=== PATIENT | male | born 1960 | race Caucasian/White ===

== ENCOUNTER 2025-01-14 14:12 | Inpatient (IN) | payer BC ==
[~2025-01-14] VITALS: Ht 162.6 cm; Wt 72.5 kg
--- NOTE | 2025-01-14 14:39 | ED.PDOC ---
History of Present Illness HPI Comments 64-year-old male came to the ER stating that he has been having right side inguinal pain for the past month. First started in the right flank started radiating into the right lower quadrant into the inguinal region. Has been seen at [facility] for which she was given fluids and sent home. Last week he was seen at [facility] for the same pain for which he was given fluids and sent home. Comes back today saying the pain is 10/10 mostly in the waiting while in region with nausea but no vomiting. He does have a history of diabetes. Denies any other symptoms. Time Seen by MD: 14:27 Reviewed Notes: Nurses Notes, Medications, Allergies Allergies: Coded Allergies: NO KNOWN ALLERGIES (Unverified , 01/14/25) Information Source: Patient Mode of Arrival: Ambulatory Severity: Moderate Timing: Days Duration: Since onset Past Medical History PAST MEDICAL HISTORY: DM Surgical History: Denies all surgeries Social History Smoker: Cigarettes Alcohol: Denies ETOH Use Drugs: Denies Drug Use Constitutional: denies: chills, diaphoresis, fatigue, fever, malaise, sweats, weakness, others EENTM: denies: blurred vision, double vision, ear bleeding, ear discharge, ear drainage, ear pain, ear ringing, eye pain, eye redness, hearing loss, mouth pain, mouth swelling, nasal discharge, nose bleeding, nose congestion, nose pain, photophobia, tearing, throat pain, throat swelling, voice changes, others Respiratory: denies: cough, hemoptysis, orthopnea, SOB at rest, shortness of breath, SOB with excertion, stridor, wheezing, others Cardiovascular: denies: chest pain, dizzy spells, diaphoresis, Dyspnea on exertion, edema, irregular heart beat, left arm pain, lightheadedness, palpitations, PND, syncope, others Gastrointestinal: reports: abdominal pain; denies: abdomen distended, blood streaked bowels, constipated, diarrhea, dysphagia, difficulty swallowing, hematemesis, melena, nausea, poor appetite, poor fluid intake, rectal bleeding, rectal pain, vomiting, others Genitourinary: denies: burning, dysuria, flank pain, frequency, hematuria, incontinence, penile discharge, penile sore, pain, testicle pain, testicle swelling, urgency, others Neurological: denies: dizziness, fainting, headache, left sided numbness, left sided weakness, numbness, paresthesia, pre-existing deficit, right sided numbness, right sided weakness, seizure, speech problems, tingling, tremors, weakness, others Musculoskeletal: denies: back pain, gout, joint pain, joint swelling, muscle pain, muscle stiffness, neck pain, others Integumetry: denies: bruises, change in color, change in hair/nails, dryness, laceration, lesions, lumps, rash, wounds, others Allergic/Immunocompromised: denies: Difficulty Healing, Frequent Infections, Hives, Itching, others Hematologic/Lymphatic: denies: anemia, blood clots, easy bleeding, easy bruising, swollen glands, others Endocrine: denies: excessive hunger, excessive sweating, excessive thirst, excessive urination, flushing, intolerance to cold, intolerance to heat, unexplained weight gain, unexplained weight loss, others Psychiatric: denies: anxiety, bipolar disorder, depression, hopeless, panic disorder, schizophrenia, sleepless, suicidal, others Physical Exam General Appearance: Moderate Distress HEENT: Normal ENT Inspection, Pharynx Normal, TMs Normal Neck: Full Range of Motion, Non-Tender, Normal, Normal Inspection Respiratory: Chest Non-Tender, Lungs Clear, No Accessory Muscle Use, No Respiratory Distress, Normal Breath Sounds Cardiovascular: No Edema, No JVD, No Murmur, No Gallop, Normal Peripheral Pulses, Regular Rate/Rhythm Breast Exam: Deferred Gastrointestinal: No Organomegaly, Non Tender, No Pulsatile Mass, Normal Bowel Sounds, Soft Genitalia: Deferred Pelvic: Deferred Rectal: Deferred Extremities: No calf tenderness, Normal capillary refill, Normal inspection, Normal range of motion, Non-tender, No pedal edema Musculoskeletal : Apperance: Normal Neurologic: Alert, combine mechanic II-XII nml as Tested, No Motor Deficits, Normal Affect, Normal Mood, No Sensory Deficits Cerebellar Function: Normal Reflexes: Normal Skin: Dry, Normal Color, Warm Peripheral Pulses: 3+ Radial (R), 3+ Radial (L) Lymphatic: No Adenopathy Was a procedure done? Was a procedure done?: No Differential Dx Considerations may include: Anemia Electrolyte imbalance X-Ray, Labs, Meds, VS Vital Signs Date Time Temp Pulse Resp B/P (MAP) Pulse Ox O2 Delivery O2 Flow Rate FiO2 01/14/25 17:48 97.8 71 16 112/71 (85) 98 97.8 01/14/25 14:54 Room Air 0 01/14/25 14:54 97.8 81 20 130/70 (90) 98 97.8 Lab Test 01/14/25 14:51 Range/Units White Blood Count 8.2 4.4-10.8 10^3/uL Red Blood Count 4.83 4.5-5.90 10^6/uL Hemoglobin 14.9 13.5-17.5 g/dL Hematocrit 42.0 41.0-53.0 % Mean Corpuscular Volume 87.1 80.0-100.0 fL Mean Corpuscular Hemoglobin 30.8 28.0-32.0 pg Mean Corpuscular Hemoglobin Concent 35.4 32.0-36.0 g/dL Red Cell Distribution Width 13.6 11.8-14.3 % Platelet Count 206 140-450 10^3/uL Mean Platelet Volume 6.6 L 6.9-10.8 fL Neutrophils (%) (Auto) 68.7 37.0-80.0 % Lymphocytes (%) (Auto) 23.2 10.0-50.0 % Monocytes (%) (Auto) 5.9 0.0-12.0 % Eosinophils (%) (Auto) 1.9 0.0-7.0 % Basophils (%) (Auto) 0.3 0.0-2.0 % Neutrophils # (Auto) 5.7 1.6-8.6 10 ^3/uL Lymphocytes # (Auto) 1.9 0.4-5.4 10 ^3/uL Monocytes # (Auto) 0.5 0-1.3 10 ^3/uL Eosinophils # (Auto) 0.2 0-0.8 10 ^3/uL Basophils # (Auto) 0 0-0.2 10 ^3/uL Nucleated Red Blood Cells 0.1 % Sodium Level 142 136-145 mmol/L Potassium Level 3.7 3.5-5.1 mmol/L Chloride Level 109 H 98-107 mmol/L Carbon Dioxide Level 27 20-31 mmol/L Anion Gap 6 5-15 Blood Urea Nitrogen 16 9-23 mg/dL Creatinine 1.08 0.700-1.30 mg/dL Glomerular Filtration Rate Calc 77 >90 mL/min BUN/Creatinine Ratio 14.8 10.0-20.0 Serum Glucose 143 H 74-106 mg/dL Calcium Level 9.6 8.7-10.4 mg/dL Patient alert. Complaining of right side inguinal pain. Vitals stable. Answering questions. Establish intravenous access. Was given fluids. Was given Toradol. Was given Zofran. History of kidney stone. Has been trying to passed a kidney stone. Continues to be in severe pain. He does smoke cigarettes. Counseled patient on effects of smoking cigarettes for 15 minutes. Reviewed his history. CT of the abdomen does reveal kidney stone with the lung cut showing pneumonia. Was given Rocephin. Was given azithromycin. Explained to the patient. Continue monitoring. Time of 1ST Reevaluation: 14:38 Reevaluation 1ST: Unchanged Patient Education/Counseling: Diagnosis, Treatment, Prognosis Family Education/Counseling: No Family Present Departure 1 Departure Time of Disposition: 14:38 Impression: Primary Impression: Pneumonia Qualified Codes: J18.9 - Pneumonia, unspecified organism Additional Impression: Kidney stone Disposition: ADMITTED INPATIENT Admit to: Med Surg Condition: Guarded Critical Care Note Critical Care Time?: No Stability Stability form required: No Heart Score Heart Score: Heart Score Response (Comments) Value History N/A 0 EKG N/A 0 Age N/A 0 Risk Factors N/A 0 Troponin N/A 0 Total 0 RIKI WILLARD MD January 14, 2025 14:39
[2025-01-14 15:26] LABS: Potassium 3.7 mmol/L (3.5-5.1); Sodium 142 mmol/L (136-145)
[2025-01-14 15:27] LABS: Anion Gap 6 (5-15); Carbon Dioxide 27 mmol/L (20-31)
[2025-01-14 15:28] LABS: Calcium 9.6 mg/dL (8.7-10.4)
[2025-01-14 15:32] LABS: BUN/Creatinine Ratio 14.8 (10.0-20.0); Blood Urea Nitrogen 16 mg/dL (9-23)
[2025-01-14 15:33] LABS: Chloride 109 mmol/L (98-107); Glucose 143 mg/dL (74-106)
[2025-01-14 15:40] LABS: Basophils # (auto) 0 10 ^3/uL (0-0.2); Basophils % (auto) 0.3 % (0.0-2.0); Eosinophils # (auto) 0.2 10 ^3/uL (0-0.8); Eosinophils % (auto) 1.9 % (0.0-7.0); Hemoglobin 14.9 g/dL (13.5-17.5); Lymphocytes # (auto) 1.9 10 ^3/uL (0.4-5.4); Lymphocytes % (auto) 23.2 % (10.0-50.0); Mean Corpuscular Hemoglobin 30.8 pg (28.0-32.0); Mean Corpuscular Hgb Conc. 35.4 g/dL (32.0-36.0); Mean Corpuscular Volume 87.1 fL (80.0-100.0); Monocytes # (auto) 0.5 10 ^3/uL (0-1.3); Monocytes % (auto) 5.9 % (0.0-12.0); Neutrophils # (auto) 5.7 10 ^3/uL (1.6-8.6); Neutrophils % (auto) 68.7 % (37.0-80.0); Nucleated Red Blood Cells % 0.1 %; Platelet Count (auto) 206 10^3/uL (140-450); Red Blood Cells 4.83 10^6/uL (4.5-5.90); Red Cell Distribution Width 13.6 % (11.8-14.3); White Blood Cell 8.2 10^3/uL (4.4-10.8)
--- NOTE | 2025-01-14 16:55 | DVH ---
Exam: CT CT AB PEL WO CON-NO ORAL OR IV History: stone Comparison Study: None TECHNIQUE: Multidetector CT of the abdomen and pelvis without IV contrast. Axial, coronal and sagitta l multiplanar reformats were obtained from the axial data set by the technologist. Radiation Dose Information: CT Dose: CTDI volume is 8.86 mGy. Dose-length product is 403.83 mGy*cm FINDINGS: Bibasilar ground-glass opacities which may represent infectious/inflammatory process. Heart size is w ithin normal limits. Subcentimeter hypodense hepatic lesion that is too small to characterize. Otherwise, liver, spleen, p ancreas and adrenal glands are unremarkable. Gallstones/tumefactive sludge within the gallbladder. N o CT evidence of acute cholecystitis. Punctate nonobstructing bilateral renal calculi. Mild nonspecific bilateral perinephric fat stranding . There is 5 x 3 x 6 mm calculus within the right distal ureter with focal dilatation of the distal u reter and mild adjacent fat stranding. No significant hydro nephrosis bilaterally. Mildly distended u rinary bladder is unremarkable. Prostate measures 3.4 x 4.6 x 3.7 cm with foci of calcification. Moderate amount of fecal material within the colon. Small bowel loops unremarkable. Appendix is unrem arkable. Descending colon and Sigmoid diverticulosis without diverticulitis. Moderate to large amoun t of fecal material within the colon. No evidence of intraperitoneal free air or free fluid. No evidence of aortic aneurysm. [id number] atherosclerotic calcification of the aorta and bila teral iliacs. No significant lymphadenopathy. Tiny fat containing umbilical hernia. Small fat containing left inguinal hernia. No destructive osseo us lesions noted. Post laminectomy changes at L3-L4 and L4-L5. IMPRESSION: There is 5 x 3 x 6 mm calculus within the right distal ureter with focal dilatation of the distal ure ter and mild adjacent fat stranding. No significant hydronephrosis bilaterally. Bibasilar ground-glass opacities which may represent infectious/inflammatory process. Gallstone/ tumefactive sludge within the gallbladder with no evidence of acute cholecystitis. Punctate nonobstructing bilateral renal calculi. Moderate amount of fecal material within the colon. Colonic diverticulosis without diverticulitis. Additional findings as above.
--- NOTE | 2025-01-14 17:17 | DVHINCON2 ---
Date of service: January 14, 2025 Referring Physician ER MD Reason for Consultation hydronephrosis History of Present Illness History Source: Patient, RN Notes, MD Notes, Old Records Exam Limitations: No limitations HPI 64 years old male with a history of diabetes mellitus, kidney stone came with a complaint of abdominal pain. As per patient patient has been having abdominal pain for last 1 month. Patient started having severe abdominal pain, sharp, 10/10 that started 1 month before. With the pain patient went to [facility] twice. Found to have renal calculi. Patient was treated with IV fluid and pain medicine and discharged home assuming stone pass on its own. Patient also went to [facility] with the same complaint last week and was treated with IV fluid and pain management. Today patient came [facility] after visiting Dr. Gallego. Patient reported he started having severe right inguinal pain, 10/10, crampy, constant, radiating to the back, no aggravating or relieving factor. Patient had some nausea but no vomiting. Patient also endorsed dysuria for several days. Dr. Gallego recommended patient to visit ER for further management and intervention. Patient denied any fever, acute constipation or diarrhea, chest pain or shortness of breath, dysarthria or acute joint pain or swelling. Abdomen and pelvis revealed- There is 5 x 3 x 6 mm calculus within the right distal ureter with focal dilatation of the distal ureter and mild adjacent fat stranding. No significant hydronephrosis bilaterally. Bibasilar ground-glass opacities which may represent infectious/inflammatory process. Gallstone/ tumefactive sludge within the gallbladder with no evidence of acute cholecystitis. Punctate nonobstructing bi lateral renal calculi. Moderate amount of fecal material within the colon. Colonic diverticulosis without diverticulitis. Review of Systems Gastrointestinal: Abdominal Pain Genitourinary: Hematuria, Pain H&P Exam Vital Signs Vital Signs Date Time Temp Pulse Resp B/P (MAP) Pulse Ox O2 Delivery O2 Flow Rate FiO2 01/14/25 14:54 Room Air 0 01/14/25 14:54 97.8 81 20 130/70 (90) 98 97.8 General Appeara: Well developed, Well nourished, Normal Appearance Neuro/Mental St: Alert, Oriented Appearance: Appropriate appearance, Appropriate insight Eye contact/ Speech: Cooperative, Good eye contact, Normal speech Skin Exam: Normal inspection, Normal color, Warm/dry Labs/Xrays [facility] [id number] [facility] [address] Ph: [phone] DIAGNOSTIC IMAGING Diagnostic Imaging Report : [id number] Signed PATIENT: MAURICE ANDERSEN ACCT: [id number] UNIT: [id number] : 1960 LOC: ER ROOM / BED: / AGE / SEX: 64 / M ADM STATUS: REG ER SERVICE 1603 ORDERING PHYSICIAN: RIKI WILLARD MD PROCEDURE(s): ABPL - CT AB PEL WO CON-NO ORAL OR IV REASON: stone ORDER NUMBER(s): [id number], ACCESSION NUMBER(s): [id number] Exam: CT CT AB PEL WO CON-NO ORAL OR IV History: stone Comparison Study: None TECHNIQUE: Multidetector CT of the abdomen and pelvis without IV contrast. Axial, coronal and sagittal multiplanar reformats were obtained from the axial data set by the technologist. Radiation Dose Information: CT Dose: CTDI volume is 8.86 mGy. Dose-length product is 403.83 mGy*cm FINDINGS: Bibasilar ground-glass opacities which may represent infectious/inflammatory process. Heart size is within normal limits. Subcentimeter hypodense hepatic lesion that is too small to characterize. Otherwise, liver, spleen, pancreas and adrenal glands are unremarkable. Gallstones/tumefactive sludge within the gallbladder. No CT evidence of acute cholecystitis. Punctate nonobstructing bilateral renal calculi. Mild nonspecific bilateral perinephric fat stranding. There is 5 x 3 x 6 mm calculus within the right distal ureter with focal dilatation of the distal ureter and mild adjacent fat stranding. No significant hydro nephrosis bilaterally. Mildly distended urinary bladder is unremarkable. Prostate measures 3.4 x 4.6 x 3.7 cm with foci of calcification. Moderate amount of fecal material within the colon. Small bowel loops unremarkable. Appendix is unremarkable. Descending colon and Sigmoid diverticulosis without diverticulitis. Moderate to large amount of fecal material within the colon. No evidence of intraperitoneal free air or free fluid. No evidence of aortic aneurysm. [id number] atherosclerotic calcification of the aorta and bilateral iliacs. No significant lymphadenopathy. Tiny fat containing umbilical hernia. Small fat containing left inguinal hernia. No destructive osseous lesions noted. Post laminectomy changes at L3-L4 and L4- L5. IMPRESSION: There is 5 x 3 x 6 mm calculus within the right distal ureter with focal dilata tion of the distal ureter and mild adjacent fat stranding. No significant hydronephrosis bilaterally. Bibasilar ground-glass opacities which may represent infectious/inflammatory process. Gallstone/ tumefactive sludge within the gallbladder with no evidence of acute cholecystitis. Punctate nonobstructing bilateral renal calculi. Moderate amount of fecal material within the colon. Colonic diverticulosis without diverticulitis. Additional findings as above. ATED BY: SRAVANI PHILLIPS DO DICTATED DATE/TIME: 01/14/251652 SIGNED BY: SRAVANI PHILLIPS DO SIGNED DATE/TIME: 01/14/251652 CC: Labs Test 01/14/25 14:51 Range/Units White Blood Count 8.2 4.4-10.8 10^3/uL Red Blood Count 4.83 4.5-5.90 10^6/uL Hemoglobin 14.9 13.5-17.5 g/dL Hematocrit 42.0 41.0-53.0 % Mean Corpuscular Volume 87.1 80.0-100.0 fL Mean Corpuscular Hemoglobin 30.8 28.0-32.0 pg Mean Corpuscular Hemoglobin Concent 35.4 32.0-36.0 g/dL Red Cell Distribution Width 13.6 11.8-14.3 % Platelet Count 206 140-450 10^3/uL Mean Platelet Volume 6.6 L 6.9-10.8 fL Neutrophils (%) (Auto) 68.7 37.0-80.0 % Lymphocytes (%) (Auto) 23.2 10.0-50.0 % Monocytes (%) (Auto) 5.9 0.0-12.0 % Eosinophils (%) (Auto) 1.9 0.0-7.0 % Basophils (%) (Auto) 0.3 0.0-2.0 % Neutrophils # (Auto) 5.7 1.6-8.6 10 ^3/uL Lymphocytes # (Auto) 1.9 0.4-5.4 10 ^3/uL Monocytes # (Auto) 0.5 0-1.3 10 ^3/uL Eosinophils # (Auto) 0.2 0-0.8 10 ^3/uL Basophils # (Auto) 0 0-0.2 10 ^3/uL Nucleated Red Blood Cells 0.1 % Sodium Level 142 136-145 mmol/L Potassium Level 3.7 3.5-5.1 mmol/L Chloride Level 109 H 98-107 mmol/L Carbon Dioxide Level 27 20-31 mmol/L Anion Gap 6 5-15 Blood Urea Nitrogen 16 9-23 mg/dL Creatinine 1.08 0.700-1.30 mg/dL Glomerular Filtration Rate Calc 77 >90 mL/min BUN/Creatinine Ratio 14.8 10.0-20.0 Serum Glucose 143 H 74-106 mg/dL Calcium Level 9.6 8.7-10.4 mg/dL Assessment/Plan Problem List: (1) Kidney stone (2) Hydronephrosis with renal and ureteral calculous obstruction Plan npo after midnight pain meds prn right URSLL and stent placement TBA Plan discussed with: Patient, Other [employer] January 14, 2025 17:17
--- NOTE | 2025-01-14 18:09 | DVH ---
CHEST RADIOGRAPH Indication: sob Technique: Single frontal view of the chest was obtained Comparison: None FINDINGS: Lines and Tubes: None Lungs: No focal consolidation. Pleura: No effusion. No pneumothorax. Cardiomediastinal contours: Unremarkable Bones: No acute osseous abnormality. IMPRESSION: 1. No acute cardiopulmonary disease.
[2025-01-14] MEDS: cefTRIAXone 1GM/50ML D5W 50 ML IV ONE (20:42)
[2025-01-14] MEDS: KETOROLAC TROMETH 30 MG/ML 1ML VIAL IV ONE (20:42)
[2025-01-14] MEDS: SODIUM CHLORIDE 0.9% 1,000 ML IV ONE ×2 (20:42→21:11)
[2025-01-14] MEDS: AZITHROMYCIN 500MG/ 250ML 250 ML IV ONE (21:09)
[2025-01-14] MEDS: ONDANSETRON HCL 4 MG/2 ML VIAL IV ONE (21:09)
[2025-01-14] MEDS ORDERED: MORPHINE SULFATE INJ 2 MG/ml SYRG IV PRN (21:30)
[2025-01-14] MEDS ORDERED: NITROGLYCERIN 0.4 MG SL TAB SL PRN (21:30)
[2025-01-14] MEDS: HEPARIN SODIUM (PORCINE) 5000 UNITS/ML 1ML VIAL SC SCH (22:00)
[2025-01-14] MEDS: SODIUM CHLOR 0.9% PF (SALINE LOCK) 10ML VIAL/SYR IV SCH (22:02)
[2025-01-14] MEDS: SODIUM CHLORIDE 0.9% 1,000 ML IV SCH (22:10)
[2025-01-14] MEDS: PANTOPRAZOLE 40 MG/10 ML VIAL INJ IV ONE (22:14)
[2025-01-14 22:15] VITALS: RESP 20; O2SAT 97
--- NOTE | 2025-01-14 22:25 | DVHHP2 ---
History of Present Illness History of Present Illness Patient is 64 years old male with a history of diabetes mellitus, kidney stone came with a complaint of abdominal pain. As per patient patient has been having abdominal pain for last 1 month. Patient started having severe abdominal pain, sharp, 10/10 that started 1 month before. With the pain patient went to [facility] twice. Found to have renal calculi. Patient was treated with IV fluid and pain medicine and discharged home assuming stone pass on its own. Patient also went to [facility] with the same complaint last week and was treated with IV fluid and pain management. Today patient came [facility] after visiting Dr. Gallego. Patient reported he started having severe right inguinal pain, 10/10, crampy, constant, radiating to the back, no aggravating or relieving factor. Patient had some nausea but no vomiting. Patient also endorsed dysuria for several days. Dr. Gallego recommended patient to visit ER for further management and intervention. Patient denied any fever, acute constipation or diarrhea, chest pain or shortness of breath, dysarthria or acute joint pain or swelling. Abdomen and pelvis revealed- There is 5 x 3 x 6 mm calculus within the right distal ureter with focal dilatation of the distal ureter and mild adjacent fat stranding. No significant hydronephrosis bilaterally. Bibasilar ground-glass opacities which may represent infectious/inflammatory process. Gallstone/ tumefactive sludge within the gallbladder with no evidence of acute cholecystitis. Punctate nonobstructing bilateral renal calculi. Moderate amount of fecal material within the colon. Colonic diverticulosis without diverticulitis. 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 Comminuted for urological procedure on 01/15/2025. Patient to be NPO after midnight. Past Medical History diabetes mellitus, kidney stone Past Surgical History Back surgery, shoulder surgery Family History Mom had hypertension and diabetes mellitus Past Social History Lives with , smoker, 1 pack per day for 40 years, no alcoholism or drug abuse. Review of Systems Review of Systems Allergy- NKDA Patient was seen today at the bedside. Cardiovascular- deny acute chest pain or shortness of breath or cough or palpitation Respiratory denies cough or short of breath or wheezing Gastrointestinal- denies any rectal bleeding or vomiting Musculoskeletal-denies acute joint swelling or tenderness or redness Neurological- denies acute dysarthria, dysphagia, change in vision Psychiatry- denies depression or SI or HI Skin- denies acute rash or purpura Allergies: Coded Allergies: NO KNOWN ALLERGIES (Unverified , 01/14/25) Medications Current Medications Medications Dose Ordered Sig/Keisha Route Start Time Stop Time Status Last Admin Dose Admin Sodium Chloride 10 ml Q8HR IV 01/14/25 22:00 01/14/25 22:02 10 ML Sodium Chloride 1,000 ml @ 120 mls/hr Q8H20M IV 01/14/25 21:30 01/14/25 22:10 120 MLS/HR Ondansetron HCl 4 mg Q4HP PRN IV 01/14/25 21:30 Morphine Sulfate 2 mg Q4HPRN PRN IV 01/14/25 21:30 Nitroglycerin 0.4 mg Q5MINP PRN SL 01/14/25 21:30 Morphine Sulfate 2 mg Q30M PRN IV 01/14/25 21:30 Ceftriaxone Sodium 50 ml @ 100 mls/hr DAILY@09 IV 01/15/25 09:00 Pantoprazole Sodium 40 mg DAILY IV 01/15/25 10:00 Heparin Sodium (Porcine) 5,000 units Q12HR SC 01/14/25 22:00 Exam Vital Signs Vital Signs Date Time Temp Pulse Resp B/P (MAP) Pulse Ox O2 Delivery O2 Flow Rate FiO2 01/14/25 22:15 20 97 Room Air* 0 21 01/14/25 21:00 98.4 69 135/68 (90) 98.4 Exam General examination-, alert, conversant HEENT- PEERLA, no acute nasal discharge Cardiovascular- S1-S2 audible, rate and rhythm regular, no murmur Respiratory- CTAB, no wheeze or rhonchi Gastrointestinal-mild right inguinal tenderness, right lower back tenderness, bowel sound+. Nondistended Musculoskeletal-no acute joint swelling or tenderness or redness Lower extremity- no leg edema Neurological- cranial nerves intact, no acute dysarthria or dysphagia Psychiatry- denies depression or SI or HI Skin- no acute rash or purpura Labs/Xrays Labs Test 01/14/25 21:38 01/14/25 14:51 Range/Units Lactic Acid Level 0.8 0.4-2.0 mmol/L White Blood Count 8.2 4.4-10.8 10^3/uL Red Blood Count 4.83 4.5-5.90 10^6/uL Hemoglobin 14.9 13.5-17.5 g/dL Hematocrit 42.0 41.0-53.0 % Mean Corpuscular Volume 87.1 80.0-100.0 fL Mean Corpuscular Hemoglobin 30.8 28.0-32.0 pg Mean Corpuscular Hemoglobin Concent 35.4 32.0-36.0 g/dL Red Cell Distribution Width 13.6 11.8-14.3 % Platelet Count 206 140-450 10^3/uL Mean Platelet Volume 6.6 L 6.9-10.8 fL Neutrophils (%) (Auto) 68.7 37.0-80.0 % Lymphocytes (%) (Auto) 23.2 10.0-50.0 % Monocytes (%) (Auto) 5.9 0.0-12.0 % Eosinophils (%) (Auto) 1.9 0.0-7.0 % Basophils (%) (Auto) 0.3 0.0-2.0 % Neutrophils # (Auto) 5.7 1.6-8.6 10 ^3/uL Lymphocytes # (Auto) 1.9 0.4-5.4 10 ^3/uL Monocytes # (Auto) 0.5 0-1.3 10 ^3/uL Eosinophils # (Auto) 0.2 0-0.8 10 ^3/uL Basophils # (Auto) 0 0-0.2 10 ^3/uL Nucleated Red Blood Cells 0.1 % Sodium Level 142 136-145 mmol/L Potassium Level 3.7 3.5-5.1 mmol/L Chloride Level 109 H 98-107 mmol/L Carbon Dioxide Level 27 20-31 mmol/L Anion Gap 6 5-15 Blood Urea Nitrogen 16 9-23 mg/dL Creatinine 1.08 0.700-1.30 mg/dL Glomerular Filtration Rate Calc 77 >90 mL/min BUN/Creatinine Ratio 14.8 10.0-20.0 Serum Glucose 143 H 74-106 mg/dL Calcium Level 9.6 8.7-10.4 mg/dL Assessment/Plan Assessment/Plan Assessment and plan Intractable abdominal pain likely due to renal stone Bilateral renal stone Ureteric stone. no hydronephrosis Right-sided ureteric obstructing stone Acute complicated UTI Diabetes mellitus-diet controlled Bibasilar ground-glass opacities which may represent infectious/inflammatory process. Gallstone/ tumefactive sludge within the gallbladder with no evidence of acute cholecystitis. Moderate amount of fecal material within the colon. Colonic diverticulosis without diverticulitis. Plan Continue IV fluid as prescribed Ordered ceftriaxone Ordered tamsulosin Ordered pain medications Patient is scheduled for urological intervention today Pending urine analysis and urine culture Diabetes mellitus diet controlled Urologist-Dr. Gallego Goals of care, Code status ; discussed with >15 minutes PUD prophylaxis: Pantoprazole DVT prophylaxis: Heparin Plan discussed with Dr. Licona , nursing staff, Total time spent on patient evaluation, chart review, assessment and plan, disc ussion discussion >35 minutes Plan discussed with: Patient, Other (RN) My Orders Orders - MALVIN WELLS RESIDENT Procedure Category Date Status Time Admit ADMIT 01/14/25 Transmitted 21:19 Code Status CODE 01/14/25 Transmitted 21:19 Sodium Chloride Lock PHA 01/14/25 In Process (Saline Lock Ns) 22:00 Sodium Chloride 0.9% PHA 01/14/25 In Process 21:30 Ondansetron Hcl PHA 01/14/25 In Process (Zofran) 21:30 Complete Blood Count LAB 01/15/25 Verified 04:00 Comprehensive LAB 01/15/25 Verified Metabolic Panel 04:00 Morphine Sulfate PHA 01/14/25 In Process Injection 21:30 Nitroglycerin PHA 01/14/25 In Process Sublingual (Ntrostat 21:30 Morphine Sulfate PHA 01/14/25 In Process Injection 21:30 Oxygen By Nasal RT 01/14/25 Transmitted Cannula 21:19 Stat Ekg For Chest GILDA 01/14/25 In Process Pain 21:19 Notify Md Of Changes GILDA 01/14/25 In Process From Base 21:19 Finishing Tunnel Operator For GILDA 01/14/25 In Process 24 Hours 21:19 Emergency Dysrhythmia GILDA 01/14/25 In Process Protocol 21:19 Rhythm Strips Once GILDA 01/14/25 In Process Every Shift 21:19 Ceftriaxone 1gm/50ml PHA 01/15/25 In Process D5w (Rocephin) 09:00 Pantoprazole PHA 01/15/25 In Process (Protonix) 10:00 Heparin Sodium PHA 01/14/25 In Process (Porcine) 22:00 Thyroid Stimulating LAB 01/14/25 In Process Hormone 21:23 Urine Bacterial CJ 01/14/25 Logged Culture 21:25 Date of Service: January 14, 2025 Billing Provider: JESUS LICONA MD Common Visit Codes: [id number] INP/OBS CARE (HIGH) Secondary Visit Codes: [id number] CARE PLAN 30 MINUTES MALVIN WELLS RESIDENT January 14, 2025 22:25
[2025-01-14] MEDS: TAMSULOSIN HYDROCHLORIDE 0.4 MG CAP PO ONE (23:01)
[2025-01-15] MEDS: ONDANSETRON HCL 4 MG/2 ML VIAL IV PRN (02:58)
[2025-01-15] MEDS: MORPHINE SULFATE INJ 2 MG/ml SYRG IV PRN (02:58)
[2025-01-15 06:34] LABS: Basophils # (auto) 0 10 ^3/uL (0-0.2); Basophils % (auto) 0.5 % (0.0-2.0); Eosinophils # (auto) 0.2 10 ^3/uL (0-0.8); Eosinophils % (auto) 3.4 % (0.0-7.0); Hematocrit 39.7 % (41.0-53.0); Hemoglobin 13.8 g/dL (13.5-17.5); Lymphocytes # (auto) 2.1 10 ^3/uL (0.4-5.4); Lymphocytes % (auto) 30.5 % (10.0-50.0); Mean Corpuscular Hemoglobin 30.5 pg (28.0-32.0); Mean Corpuscular Hgb Conc. 34.7 g/dL (32.0-36.0); Mean Corpuscular Volume 87.9 fL (80.0-100.0); Monocytes # (auto) 0.4 10 ^3/uL (0-1.3); Monocytes % (auto) 5.9 % (0.0-12.0); Neutrophils # (auto) 4.1 10 ^3/uL (1.6-8.6); Neutrophils % (auto) 59.7 % (37.0-80.0); Nucleated Red Blood Cells % 0.2 %; Platelet Count (auto) 194 10^3/uL (140-450); Red Blood Cells 4.51 10^6/uL (4.5-5.90); Red Cell Distribution Width 13.7 % (11.8-14.3); White Blood Cell 6.8 10^3/uL (4.4-10.8)
[2025-01-15] MEDS ORDERED: EPINEPHrine HCL 1 MG/1 ML AMP ONE (06:56)
[2025-01-15 07:06] LABS: Alanine Aminotransferase 14 U/L (7-40); Alkaline Phosphatase 70 U/L (46-116); Anion Gap 8 (5-15); BUN/Creatinine Ratio 15.6 (10.0-20.0); Blood Urea Nitrogen 17 mg/dL (9-23); Calcium 8.7 mg/dL (8.7-10.4); Carbon Dioxide 25 mmol/L (20-31); Glucose 85 mg/dL (74-106); Magnesium 2.1 mg/dL (1.6-2.6); Potassium 4.2 mmol/L (3.5-5.1); Sodium 142 mmol/L (136-145); Total Protein 6.4 g/dL (5.7-8.2)
[2025-01-15 07:07] LABS: Albumin 4.2 g/dL (3.2-4.8); Aspartate Aminotransferase 15 U/L (13-40); Bilirubin, Total 0.7 mg/dL (0.2-1.0)
[2025-01-15 07:08] LABS: Chloride 109 mmol/L (98-107)
[2025-01-15] MEDS: cefTRIAXone 1GM/50ML D5W 50 ML IV SCH (08:47)
--- NOTE | 2025-01-15 08:49 | DVHPNRES ---
Progress Note Date Seen: January 15, 2025 Resident Creating Document: DARIUS WHITT RESIDENT Medical Necessity Reason Pt with a Central, PICC or Fol: No Subjective Review of Systems 64 years old male with a history of diabetes mellitus, kidney stone came with a complaint of abdominal pain. As per patient patient has been having abdominal pain for last 1 month. Patient started having severe abdominal pain, sharp, 10/10 that started 1 month before. With the pain patient went to [facility] twice. Found to have renal calculi. Patient was treated with IV fluid and pain medicine and discharged home assuming stone pass on its own. Patient also went to [facility] with the same complaint last week and was treated with IV fluid and pain management. Today patient came [facility] after visiting Dr. Gallego. Patient reported he started having severe right inguinal pain, 10/10, campy, constant, radiating to the back, no aggravating or relieving factor. Patient had some nausea but no vomiting. Patient also endorsed dysuria for several days. Dr. Gallego recommended patient to visit ER for further management and intervention. Patient denied any fever, acute constipation or diarrhea, chest pain or shortness of breath, dysarthria or acute joint pain or swelling. The pain has been severe, reaching a 10 out of 10 on the pain scale before receiving morphine, which reduced it to a 2. The patient reports ongoing discomfort when urinating. Associated symptoms include a little nausea, but no vomiting. The patient experienced hematuria on night and early Tuesday morning, which has since cleared up. The patient is a current smoker, consuming about half a pack a day for 40 years. They roll their own cigarettes using pipe tobacco. The patient denies alcohol use or illicit drug use. They mention increased smoking since fpc. ROS Constitutional: Denies weight loss, fever and chills. HEENT: Denies changes in vision and hearing. Respiratory: Denies shortness of breath and cough Cardiovascular: Denies chest discomfort or palpitations GI:Admits abdominal pain and nausea, Denies vomiting and diarrhea. : Denies dysuria and urinary frequency. Musculoskeletal: Denies myalgias and joint pain Skin: Denies rash and pruritus. Neurological: Denies dizziness, headache, vision or hearing problems Objective vital signs Vital Sign Date Time Temp Pulse Resp B/P (MAP) Pulse Ox O2 Delivery O2 Flow Rate FiO2 01/15/25 07:46 Room Air* 0 21 5/13/25 07:46 98.1 69 16 131/79 (96) 96 98.1 Total Intake and Output 01/14/25 01/14/25 01/15/25 15:00 23:00 07:00 Intake Total 1300 ml Balance 1300 ml medications Current Medications Medications Dose Ordered Sig/Keisha Route Start Time Stop Time Status Last Admin Dose Admin Sodium Chloride 10 ml Q8HR IV 01/14/25 22:00 01/15/25 06:02 10 ML Sodium Chloride 1,000 ml @ 120 mls/hr Q8H20M IV 01/14/25 21:30 01/14/25 22:10 120 MLS/HR Ondansetron HCl 4 mg Q4HP PRN IV 01/14/25 21:30 01/15/25 07:35 4 MG Morphine Sulfate 2 mg Q4HPRN PRN IV 01/14/25 21:30 01/15/25 07:45 2 MG Nitroglycerin 0.4 mg Q5MINP PRN SL 01/14/25 21:30 Morphine Sulfate 2 mg Q30M PRN IV 01/14/25 21:30 Ceftriaxone Sodium 50 ml @ 100 mls/hr DAILY@09 IV 01/15/25 09:00 01/15/25 08:47 100 MLS/HR Pantoprazole Sodium 40 mg DAILY IV 01/15/25 10:00 Heparin Sodium (Porcine) 5,000 units Q12HR SC 01/14/25 22:00 Tamsulosin HCl 0.4 mg QPM PO 01/15/25 18:00 Examination GENERAL: Not in acute distress. HEENT: EOMI, Moist mucous membranes. No scleral icterus. No cervical lymphadenopathy. LUNGS: Clear to auscultation bilaterally. No accessory muscle use. CARDIOVASCULAR: Regular rate and rhythm. No murmur. No JVD. ABDOMEN: mild right inguinal tenderness, right lower back tenderness, bowel sound+. Nondistended EXTREMITIES: No edema. Nontender. SKIN: No rashes or lesions. Warm. NEUROLOGIC: Alert and oriented X3 laboratory and microbiology Laboratory Tests 01/15/25 05:48 Test 01/15/25 05:48 Range/Units Serum Glucose 85 74-106 mg/dL Problem List/Assessment/Plan Problem List/Assessment/Plan # Nephrolithiasis B/L # Intractable abdominal pain likely due to renal stone # Right-sided ureteric obstructing stone and hydronephrosis -CT abd Shows: There is 5 x 3 x 6 mm calculus within the right distal ureter with focal dilatation of the distal ureter and mild adjacent fat stranding. -Urologist consultation appreciated for definitive management, likely right URSLL and stent placement - Continue pain management as needed - Monitor for complications such as urinary tract infection or obstruction - Educate patient on dietary modifications to prevent future stone formation, including reducing soda intake # Acute complicated UTI -pending urinalysis and urine cultures - continue empiric antibiotics # Type 2 Diabetes Mellitus - Continue current management with diet and exercise - Monitor blood glucose levels during hospital stay - Educate patient on the importance of regular follow-ups and potential need for medication in the future if lifestyle modifications prove insufficient # Hyperlipidemia - Continue simvastatin (dose not specified) - Reinforce importance of dietary modifications and regular exercise for cholesterol management # Tobacco Use - Strongly advise smoking cessation - Discuss smoking cessation strategies and resources Goals of care discussed with patient for 30 minutes: Full Code Case discussed with Dr. Martin Plan discussed with: Patient Date of Service: January 15, 2025 Billing Provider: MASOUD MARTIN MD Common Visit Codes: [id number] INP/OBS CARE(HIGH) DARIUS WHITT RESIDENT January 15, 2025 08:49 MASOUD MARTIN MD January 21, 2025 22:46
[2025-01-15] MEDS ORDERED: fentaNYL CITRATE 100 MCG/2 ML VL ONE (09:51)
[2025-01-15] MEDS ORDERED: MIDAZOLAM HCL 2MG/2ML 2ml VIAL (1mg/ml) ONE (09:51)
--- NOTE | 2025-01-15 09:59 | ECG ---
[facility] Test Date: 2025-01-15 Test Time: 09:24:22 Pat Name: MAURICE ANDERSEN Department: Room: 0214 Gender: M Hauling Contractor: RENITA : 1960 Requested By: JUAN BLEDSOE Order Number: [id number] Reading MD: Shane Bazan Measurements Intervals [place] Rate: 74 P: 66 [place]: 164 QRS: 113 QRSD: 84 T: 51 QT: 386 QTc: 428 Interpretive Statements Sinus rhythm with fusion complexes Right axis deviation Electronically Signed On 01-16-2025 11:59:27 PDT by Shane Bazan Please click the below link to view image of tracing.
[2025-01-15] MEDS: PANTOPRAZOLE 40 MG/10 ML VIAL INJ IV SCH (10:00)
[2025-01-15] MEDS: ceFAZolin 2 GM/D5W50ml 50 ML IV ONE (10:11)
[2025-01-15] MEDS ORDERED: ePHEDrine SULFATE 50 MG/ML AMP IV PRN (11:00)
[2025-01-15] MEDS ORDERED: HYDROmorphone HCL 2 MG/ML VL/or syr IV PRN (11:00)
[2025-01-15] MEDS ORDERED: MIDAZOLAM HCL 2MG/2ML 2ml VIAL (1mg/ml) IV PRN (11:00)
[2025-01-15] MEDS ORDERED: hydrALAZINE HCL 20 MG/ML VL IV PRN (11:00)
[2025-01-15] MEDS: KETOROLAC TROMETH 30 MG/ML 1ML VIAL IV ONE (11:00)
[2025-01-15] MEDS ORDERED: MORPHINE SULFATE 4 MG/ML SYR/VIAL IV PRN (11:00)
[2025-01-15] MEDS: ONDANSETRON HCL 4 MG/2 ML VIAL IV ONE (11:00)
[2025-01-15] MEDS ORDERED: DexAMETHasone SOD PHOS 10MG/1ML VIAL INJ ONE (11:06)
[2025-01-15] MEDS ORDERED: ONDANSETRON HCL 4 MG/2 ML VIAL ONE (11:06)
[2025-01-15] MEDS ORDERED: PROPOFOL 10 MG/ML 20 ML IV ONE (11:06)
[2025-01-15 11:45] VITALS: PULSE 64; RESP 12; O2SAT 95
[2025-01-15 13:00] VITALS: BP 130/73; PULSE 65; RESP 18; TEMP 98.7; O2SAT 95
[2025-01-15 13:18] VITALS: BP 130/73; PULSE 64; RESP 18; RESP 94; TEMP 98.4; O2SAT 94
--- NOTE | 2025-01-15 14:20 | DVHNC2 ---
Procedure - OPERATIVE REPORT Pre-op. Diagnosis: Ureteral stone - Right distal 7 mm stone Hydronephrosis - Right Post-op. Diagnosis: Same as pre-op diagnosis Operation: Right ureteroscopy, laser lithotripsy Cystoscopy with right ureteral stent placement Right retrograde pyelogram Anesthesia: General Indications: Patient presented with right ureteral stone and hydronephrosis The indications, risks, complications, alternatives and benefits were discussed. All questions were encouraged and answered. Patient is aware of risks/complications including but not limited to infection, bleeding, persistent pain, possible ureteral injury/ureteral stricture requiring additional surgical management, urethral injury, urethral stricture and meatal stenosis. Details of Procedure: After obtaining the consent, patient was taken to OR suite and underwent general anesthesia. Preop antibiotic was given. Timeout was performed and deemed to be correct. With the patient positioned in the lithotomy, the area of the genitalia prepped and draped in usual sterile fashion. 22 F Cystoscope was used to access the urethra and bladder. A sensor tip guide wire was advanced through the scope into the right ureter all the way to the right collecting system under fluoroscopic control. Then I assembled semi-rigid ureteroscopy and placed it into the bladder. The ureteroscope was navigated into the right ureter. The stone was visualized. Now using a 200 micron laser fiber the stone was blasted into small fragments. Now using a basket, the fragments were removed and passed to be sent to pathology. Ureteroscope was removed. Now a 6 Fr x 26 cm JJ ureteral stent was advanced under direct visualization through the right ureteral orifice into the kidney. Good proximal curl was seen in the renal pelvis under fluoroscopy. Bladder was decompressed. The patient was placed in supine position in the OR table. Anesthesia was reversed, patient was extubated and transferred awake and in stable conditions to recovery room. Specimens: Right ureteral stone Complications: None Findings: Right distal ureteral stone 7 mm Notes: 6 Fr x 26 cm JJ ureteral stent - Right JUAN BLEDSOE MD January 15, 2025 14:20
--- NOTE | 2025-01-15 14:48 | DVH ---
FLUOROSCOPY TIME: 90.5 seconds TECHNIQUE: Intraoperative radiographs of the pelvis were obtained. COMPARISON: None FINDINGS: Refer to intraoperative report for further evaluation. IMPRESSION: Refer to intraoperative report for further evaluation.
[2025-01-15 17:00] VITALS: BP 116/63; PULSE 85; RESP 17; TEMP 98; O2SAT 98
[2025-01-15] MEDS: TAMSULOSIN HYDROCHLORIDE 0.4 MG CAP PO SCH (20:12)
[2025-01-15 21:00] VITALS: BP 110/54; PULSE 76; RESP 16; TEMP 98.4; O2SAT 95
[2025-01-16] VITALS (7 sets, daily range): BP systolic 98–111; BP diastolic 45–55; PULSE 56–86; RESP 14–20; TEMP 97.5–98.2; O2SAT 93–100
[2025-01-16 06:49] LABS: Urine Bacteria None Seen /hpf (None Seen)
[2025-01-16 07:00] LABS: Urine Blood 3+ /uL (Negative); Urine Clarity Turbid (Clear); Urine Color Colorless (Yellow); Urine Protein, UAD TRACE (Negative); Urine Specific Gravity 1.009 (1.001-1.035); Urine Squamous Epithelial Cell None Seen /hpf (<5); Urine Urobilinogen Normal (Negative); Urine WBC 49 /HPF (0-3); Urine pH 6.5 (5.0-9.0)
[2025-01-16 09:18] LABS: Basophils # (auto) 0 10 ^3/uL (0-0.2); Basophils % (auto) 0.1 % (0.0-2.0); Eosinophils # (auto) 0 10 ^3/uL (0-0.8); Hematocrit 39.9 % (41.0-53.0); Hemoglobin 13.6 g/dL (13.5-17.5); Lymphocytes # (auto) 0.9 10 ^3/uL (0.4-5.4); Lymphocytes % (auto) 6.9 % (10.0-50.0); Mean Corpuscular Hemoglobin 30.1 pg (28.0-32.0); Mean Corpuscular Hgb Conc. 34.1 g/dL (32.0-36.0); Mean Corpuscular Volume 88.1 fL (80.0-100.0); Monocytes # (auto) 0.5 10 ^3/uL (0-1.3); Monocytes % (auto) 3.4 % (0.0-12.0); Neutrophils # (auto) 11.9 10 ^3/uL (1.6-8.6); Neutrophils % (auto) 89.6 % (37.0-80.0); Platelet Count (auto) 195 10^3/uL (140-450); Red Blood Cells 4.52 10^6/uL (4.5-5.90); Red Cell Distribution Width 13.6 % (11.8-14.3); White Blood Cell 13.3 10^3/uL (4.4-10.8)
[2025-01-16 09:23] LABS: Potassium 4.1 mmol/L (3.5-5.1); Sodium 141 mmol/L (136-145)
[2025-01-16 09:24] LABS: Anion Gap 8 (5-15); Calcium 9.5 mg/dL (8.7-10.4); Carbon Dioxide 22 mmol/L (20-31)
[2025-01-16 09:29] LABS: BUN/Creatinine Ratio 15.7 (10.0-20.0); Blood Urea Nitrogen 16 mg/dL (9-23)
[2025-01-16 09:30] LABS: Chloride 111 mmol/L (98-107); Glucose 148 mg/dL (74-106)
[2025-01-16] MEDS: HYDROcodone-ACET 10/325MG TAB PO ONE ×2 (11:17→15:57)
[2025-01-16] MEDS: SODIUM CHLORIDE 0.9% 500 ML IV ONE ×2 (11:18→15:57)
--- NOTE | 2025-01-16 15:16 | DVHPNRES ---
Progress Note Date Seen: January 16, 2025 Resident Creating Document: DARIUS WHITT RESIDENT Medical Necessity Reason Pt with a Central, PICC or Fol: No Subjective Review of Systems Patient seen and examined at bedside, status post Right ureteroscopy, laser lithotripsy, Cystoscopy with right ureteral stent placement. Patient does not has any complaint. Dasilva catheter is in place showing relatively red urine. Objective vital signs Vital Sign Date Time Temp Pulse Resp B/P (MAP) Pulse Ox O2 Delivery O2 Flow Rate FiO2 01/16/25 09:00 97.9 70 16 99/50 (66) 100 97.9 01/16/25 08:00 Room Air* 0 21 Total Intake and Output 01/15/25 01/15/25 01/16/25 15:00 23:00 07:00 Intake Total 100 ml 400 ml 1400 ml Output Total 2400 ml 1400 ml Balance 100 ml -2000 ml 0 ml medications Current Medications Medications Dose Ordered Sig/Keisha Route Start Time Stop Time Status Last Admin Dose Admin Sodium Chloride 10 ml Q8HR IV 01/14/25 22:00 01/16/25 06:07 10 ML Sodium Chloride 1,000 ml @ 120 mls/hr Q8H20M IV 01/14/25 21:30 01/15/25 03:56 120 MLS/HR Ondansetron HCl 4 mg Q4HP PRN IV 01/14/25 21:30 01/15/25 07:35 4 MG Morphine Sulfate 2 mg Q4HPRN PRN IV 01/14/25 21:30 01/16/25 02:29 2 MG Nitroglycerin 0.4 mg Q5MINP PRN SL 01/14/25 21:30 Morphine Sulfate 2 mg Q30M PRN IV 01/14/25 21:30 Ceftriaxone Sodium 50 ml @ 100 mls/hr DAILY@09 IV 01/15/25 09:00 01/16/25 09:06 100 MLS/HR Pantoprazole Sodium 40 mg DAILY IV 01/15/25 10:00 01/16/25 09:06 40 MG Heparin Sodium (Porcine) 5,000 units Q12HR SC 01/14/25 22:00 Tamsulosin HCl 0.4 mg QPM PO 01/15/25 18:00 01/15/25 20:12 0.4 MG Examination GENERAL: Not in acute distress. HEENT: EOMI, Moist mucous membranes. No scleral icterus. No cervical lymphadenopathy. LUNGS: Clear to auscultation bilaterally. No accessory muscle use. CARDIOVASCULAR: Regular rate and rhythm. No murmur. No JVD. ABDOMEN: mild right inguinal tenderness, right lower back tenderness, bowel sound+. Nondistended EXTREMITIES: No edema. Nontender. SKIN: No rashes or lesions. Warm. NEUROLOGIC: Alert and oriented X3 laboratory and microbiology Laboratory Tests 01/16/25 08:25 Test 01/16/25 08:25 Range/Units Serum Glucose 148 H 74-106 mg/dL Problem List/Assessment/Plan Problem List/Assessment/Plan # Nephrolithiasis B/L # Intractable abdominal pain likely due to renal stone # Right-sided ureteric obstructing stone and hydronephrosis -CT abd Shows: There is 5 x 3 x 6 mm calculus within the right distal ureter with focal dilatation of the distal ureter and mild adjacent fat stranding. -Urologist consultation appreciated: status post Right ureteroscopy, laser lithotripsy, Cystoscopy with right ureteral stent placement. - Continue pain management as needed - Monitor for complications such as urinary tract infection or obstruction - Educate patient on dietary modifications to prevent future stone formation, including reducing soda intake # Acute complicated UTI -pending urinalysis and urine cultures - continue empiric antibiotics # Type 2 Diabetes Mellitus - Continue current management with diet and exercise - Monitor blood glucose levels during hospital stay - Educate patient on the importance of regular follow-ups and potential need for medication in the future if lifestyle modifications prove insufficient # Hyperlipidemia - Continue simvastatin (dose not specified) - Reinforce importance of dietary modifications and regular exercise for cholesterol management # Tobacco Use - Strongly advise smoking cessation - Discuss smoking cessation strategies and resources Goals of care discussed with patient for 23 minutes: Full Code Case discussed with Dr. Martin Plan discussed with: Patient My Orders My Orders Orders - DARIUS WHITT RESIDENT Procedure Category Date Status Time Pt Request For Service PT 01/16/25 Logged 08:59 Date of Service: January 16, 2025 Billing Provider: MASOUD MARTIN MD Common Visit Codes: [id number] INP/OBS CARE(HIGH) DARIUS WHITT RESIDENT January 16, 2025 15:16 MASOUD MARTIN MD January 22, 2025 09:10
[2025-01-17 01:00] VITALS: BP 105/55; PULSE 65; RESP 19; TEMP 97.9; O2SAT 96
[2025-01-17] MEDS ORDERED: HYDROcodone-ACET 10/325MG TAB PO PRN (01:30)
[2025-01-17] MEDS: HYDROcodone-ACET 10/325MG TAB PO ONE (02:24)
[2025-01-17 05:00] VITALS: BP_SYST 100; BP_SYST 121; BP_DIAS 64; PULSE 63; RESP 18; TEMP 97.9; O2SAT 95
[2025-01-17 08:00] VITALS: RESP 18
[2025-01-17 09:00] VITALS: BP 111/54; PULSE 77; RESP 17; TEMP 97.8; O2SAT 96
[2025-01-17] MEDS: IOHEXOL 300 MG/ML 100ML BOTTLE IJ ONE (09:36)
[2025-01-17] MEDS ORDERED: OXY5T PO (11:43)
[2025-01-17] MEDS ORDERED: ACE650RS PO (11:47)
[2025-01-17] MEDS ORDERED: IBU600T PO (11:47)
[2025-01-17] MEDS ORDERED: CIP500T PO (11:47)
--- NOTE | 2025-01-17 11:50 | DVHDSRES ---
Discharge Summary Date of Admission Resident Creating Document: DARIUS WHITT RESIDENT January 14, 2025 at 21:19 Date of Discharge: January 17, 2025 Admitting Diagnosis B/L Renal stone Intractable abdominal pain Labs/Diagnostic Data: Laboratory Results Test 01/16/25 08:25 01/16/25 06:22 01/15/25 05:48 01/15/25 05:09 White Blood Count 13.3 10^3/uL (4.4-10.8) Red Blood Count 4.52 10^6/uL (4.5-5.90) Hemoglobin 13.6 g/dL (13.5-17.5) Hematocrit 39.9 % (41.0-53.0) Mean Corpuscular Volume 88.1 fL (80.0-100.0) Mean Corpuscular Hemoglobin 30.1 pg (28.0-32.0) Mean Corpuscular Hemoglobin Concent 34.1 g/dL (32.0-36.0) Red Cell Distribution Width 13.6 % (11.8-14.3) Platelet Count 195 10^3/uL (140-450) Mean Platelet Volume 6.7 fL (6.9-10.8) Neutrophils (%) (Auto) 89.6 % (37.0-80.0) Lymphocytes (%) (Auto) 6.9 % (10.0-50.0) Monocytes (%) (Auto) 3.4 % (0.0-12.0) Eosinophils (%) (Auto) 0.0 % (0.0-7.0) Basophils (%) (Auto) 0.1 % (0.0-2.0) Neutrophils # (Auto) 11.9 10 ^3/uL (1.6-8.6) Lymphocytes # (Auto) 0.9 10 ^3/uL (0.4-5.4) Monocytes # (Auto) 0.5 10 ^3/uL (0-1.3) Eosinophils # (Auto) 0 10 ^3/uL (0-0.8) Basophils # (Auto) 0 10 ^3/uL (0-0.2) Nucleated Red Blood Cells 0.0 % Sodium Level 141 mmol/L (136-145) Potassium Level 4.1 mmol/L (3.5-5.1) Chloride Level 111 mmol/L (98-107) Carbon Dioxide Level 22 mmol/L (20-31) Anion Gap 8 (5-15) Blood Urea Nitrogen 16 mg/dL (9-23) Creatinine 1.02 mg/dL (0.700-1.30) Glomerular Filtration Rate Calc 83 mL/min (>90) BUN/Creatinine Ratio 15.7 (10.0-20.0) Serum Glucose 148 mg/dL (74-106) Calcium Level 9.5 mg/dL (8.7-10.4) Urine Color Colorless (Yellow) Urine Clarity Turbid (Clear) Urine pH 6.5 (5.0-9.0) Urine Specific [place] 1.009 (1.001-1.035) Urine Protein Trace (Negative) Urine Ketones Negative (Negative) Urine Blood 3+ /uL (Negative) Urine Nitrite Negative (Negative) Urine Bilirubin Negative (Negative) Urine Urobilinogen Normal mg/dL (Negative) Urine Leukocyte Esterase 2+ /uL (Negative) Urine RBC 1006 /hpf (0 - 3) Urine Microscopic WBC 49 /HPF (0-3) Urine Squamous Epithelial Cells None seen /hpf (<5) Urine Bacteria None seen /hpf (None Seen) Urine Glucose Trace mg/dL (Normal) Magnesium Level 2.1 mg/dL (1.6-2.6) Total Bilirubin 0.7 mg/dL (0.2-1.0) Aspartate Amino Transferase (AST) 15 U/L (13-40) Alanine Aminotransferase (ALT) 14 U/L (7-40) Alkaline Phosphatase 70 U/L (46-116) Total Protein 6.4 g/dL (5.7-8.2) Albumin 4.2 g/dL (3.2-4.8) Test 01/14/25 23:39 01/14/25 21:38 Hemoglobin A1c 5.4 % A1C (<5.7) Lactic Acid Level 0.6 mmol/L (0.4-2.0) Thyroid Stimulating Hormone (TSH) 4.25 uIU/mL (0.55-4.78) Other Laboratory Tests 01/16/25 08:25 Brief Hx & Hospital Course: 64 years old male with a history of diabetes mellitus, kidney stone came with a complaint of abdominal pain. As per patient patient has been having abdominal pain for last 1 month. Patient started having severe abdominal pain, sharp, 10/10 that started 1 month before. With the pain patient went to [facility] twice. Found to have renal calculi. Patient was treated with IV fluid and pain medicine and discharged home assuming stone pass on its own. Patient also went to [facility] with the same complaint last week and was treated with IV fluid and pain management. Today patient came [facility] after visiting Dr. Gallego. Patient reported he started having severe right inguinal pain, 10/10, campy, constant, radiating to the back, no aggravating or relieving factor. Patient had some nausea but no vomiting. Patient also endorsed dysuria for several days. Dr. Gallego recommended patient to visit ER for further management and intervention. Patient denied any fever, acute constipation or diarrhea, chest pain or shortness of breath, dysarthria or acute joint pain or swelling. The pain has been severe, reaching a 10 out of 10 on the pain scale before receiving morphine, which reduced it to a 2. The patient reports ongoing discomfort when urinating. Associated symptoms include a little nausea, but no vomiting. The patient experienced hematuria on night and early Tuesday morning, which has since cleared up. The patient is a current smoker, consuming about half a pack a day for 40 years. They roll their own cigarettes using pipe tobacco. Patient underwent: Right ureteroscopy, laser lithotripsy, Cystoscopy with right ureteral stent placement by Dr. Gallego. Dasilva catheter was on place and was draining slight red urine. According to urologist recommendation the patient is going to be discharged home with Dasilva catheter on place and recommend to follow up in outpatient Urology Clinic. Patient is hemodynamically stable J, denies any fever chills and any symptoms of infection. Patient is going to be discharged home with oxycodone, Tylenol, Motrin and ciprofloxacin b.i.d. for five days. Consults/Reason for consult Urologist: Dr. Gallego for renal stone, ureteric stone Operations or Procedures [address] [address] Ph: [phone] PATIENT: MAURICE ANDERSENACCT: [id number] : 1960 LOC: CENTRAL ROOM/ROOM: [facility] AGE/SEX: 64/M ADM STATUS: ADM IN ADM DATE: 01/14/25 UNIT: [id number] HEALTH INFORMATION MANAGEMENT PROCEDURE NOTE - DVH :[id number] Signed ORDERING PHYSICIAN: PROCEDURE(s): ORDER NUMBER(s): , ACCESSION NUMBER(s): Procedure - OPERATIVE REPORT Pre-op. Diagnosis: Ureteral stone - Right distal 7 mm stone Hydronephrosis - Right Post-op. Diagnosis: Same as pre-op diagnosis Operation: Right ureteroscopy, laser lithotripsy Cystoscopy with right ureteral stent placement Right retrograde pyelogram Anesthesia: General Indications: Patient presented with right ureteral stone and hydronephrosis The indications, risks, complications, alternatives and benefits were discussed. All questions were encouraged and answered. Patient is aware of risks/complications including but not limited to infection, bleeding, persistent pain, possible ureteral injury/ureteral stricture requiring additional surgical management, urethral injury, urethral stricture and meatal stenosis. Details of Procedure: After obtaining the consent, patient was taken to OR suite and underwent general anesthesia. Preop antibiotic was given. Timeout was performed and deemed to be correct. With the patient positioned in the lithotomy, the area of the genitalia prepped and draped in usual sterile fashion. 22 F Cystoscope was used to access the urethra and bladder. A sensor tip guide wire was advanced through the scope into the right ureter all the way to the right collecting system under fluoroscopic control. Then I assembled semi-rigid ureteroscopy and placed it into the bladder. The ureteroscope was navigated into the right ureter. The stone was visualized. Now using a 200 micron laser fiber the stone was blasted into small fragments. Now using a basket, the fragments were removed and passed to be sent to pathology. Ureteroscope was removed. Now a 6 Fr x 26 cm JJ ureteral stent was advanced under direct visualization through the right ureteral orifice into the kidney. Good proximal curl was seen in the renal pelvis under fluoroscopy. Bladder was decompressed. The patient was placed in supine position in the OR table. Anesthesia was reversed, patient was extubated and transferred awake and in stable conditions to recovery room. Specimens: Right ureteral stone Complications: None Findings: Right distal ureteral stone 7 mm Notes: 6 Fr x 26 cm JJ ureteral stent - Right JUAN GLALEGO MD January 15, 2025 14:20 DICTATED BY: JUAN GALLEGO MD DICATED DATE/TIME: 01/15/25 1420 SIGNED BY: JUAN GALLEGO MD <<Signature on File>> SIGNED DATE/TIME: 01/15/25 1420 CC: Condition at Discharge: Fair Final Diagnosis/Problems List # Nephrolithiasis B/L # Intractable abdominal pain likely due to renal stone # Right-sided ureteric obstructing stone and hydronephrosis S/P laser lithotripsy, right ureteral stent placement. # Acute complicated UTI # Type 2 Diabetes Mellitus # Hyperlipidemia # Tobacco Use Discharge Disposition: Home SNF Discharge Will this Physician continue t: No Discharge Instruct/Medications Diet: Consistent carbohydrate Activity: No Restrictions, As Tolerated Follow Up/Referral: Follow up with Urologist, Dr Gallego as scheduled Follow up with PCP in 1-2 weeks Medications: Ciprofloxacin 500 b.i.d. for five days Tylenol, Motrin, oxycodone Discharge Statement: "Patient was advised to return to the ER or call 911 if any headaches, dizziness, shortness of breath, chest pain, abdominal pain, bleeding, fevers, or worsening of medical condition. Patient was counseled about treatment plan, medications, possible side effects, patientverbalized understanding. All questions were answered to the best of my ability. This discharge took greater then 30 minutes in planning, reviewing documentation, counseling the patient, and discussing with other team members." ASSESSMENT ASSESSMENT Assessment # Nephrolithiasis B/L # Intractable abdominal pain likely due to renal stone # Right-sided ureteric obstructing stone and hydronephrosis S/P laser lithotripsy, right ureteral stent placement. # Acute complicated UTI # Type 2 Diabetes Mellitus # Hyperlipidemia # Tobacco Use Date of Service: January 17, 2025 Billing Provider: MASOUD MARTIN MD Common Visit Codes: 28022-RYV/OBS DISCH DAY >30min DARIUS WHITT RESIDENT January 17, 2025 11:50 MASOUD MARTIN MD January 22, 2025 12:37
[2025-01-17 12:30] VITALS: BP 106/55; PULSE 77; RESP 16; TEMP 97.5; O2SAT 97
== END 2025-01-17 13:25 | disposition home or self-care (01) | DRG 659 ==
LOC: ER 14:18 → OVERFLOW 21:19 → CENTRAL 01-15 13:30
PROVIDERS: ADMIT Student in an Organized Health Care Education/Training Program; ATTEND Emergency Medicine
PROC: 0TC68ZZ Extirpation of Matter from Right Ureter, Via Natural or Artificial Opening Endoscopic (ICD-10-PCS; 2025-01-15)
PROC: BT1D1ZZ Fluoroscopy of Right Kidney, Ureter and Bladder using Low Osmolar Contrast (ICD-10-PCS; 2025-01-15)
PROC: 0T768DZ Dilation of Right Ureter with Intraluminal Device, Via Natural or Artificial Opening Endoscopic (ICD-10-PCS; principal; 2025-01-15 10:41)
DX: N13.6 Pyonephrosis (principal); J18.9 Pneumonia, unspecified organism; E11.9 Type 2 diabetes mellitus without complications; K80.20 Calculus of gallbladder without cholecystitis without obstruction; K57.30 Diverticulosis of large intestine without perforation or abscess without bleeding; F17.210 Nicotine dependence, cigarettes, uncomplicated; E78.5 Hyperlipidemia, unspecified; Z83.3 Family history of diabetes mellitus; Z82.49 Family history of ischemic heart disease and other diseases of the circulatory system
CPT/HCPCS: 36415; 71045; 74018; 74176; 76000; 80048; 80053; 81001; 82360; 83036; 83605; 83735; 84443; 85025; 87086; 93005; 96365; 96368; 96375; 97163; G0378; J0171; J1100; J1885; J2250; J2405; J2470; J2704